=== PATIENT | male | born 1965 | race Caucasian/White ===

== ENCOUNTER → 2016-10-02 | Outpatient (CLI) | payer BC ==
[~2016-10-02] MED LIST: MULT-506 PO; OMEG10007 PO; WARF2TAB PO
--- NOTE | 2016-10-02 11:26 | DIAGNOSTIC IMAGING REPORT ---
RIGHT KNEE 3 VIEWS INCLUDING BILATERAL STANDING AP VIEWS CLINICAL HISTORY: Right knee pain COMPARISON: March 30, 2016 DISCUSSION: There are postsurgical changes of a total right knee arthroplasty and patellar resurfacing. No acute fractures or dislocations are visualized. There is equivocal small joint effusion. IMPRESSION: Postsurgical change. Equivocal small joint effusion. No fractures or destructive lesions identified. Electronically signed by: Alessandro Coulter M.D. 10/02/2016 11:25 AM Dictated Date/Time: 10/02/2016 11:23 AM
== END | disposition home or self-care (01) ==
LOC: C.RDSM 10:00
PROVIDERS: ATTEND Physical Medicine & Rehabilitation Sports Medicine
DX: Z96.651 Presence of right artificial knee joint (principal)

== ENCOUNTER → 2017-08-30 | Outpatient (CLI) | payer BC ==
--- NOTE | 2017-08-30 10:26 | DIAGNOSTIC IMAGING REPORT ---
R KNEE 3 VIEWS CLINICAL HISTORY: RIGHT TOTAL KNEE REPLACEMENT joint replacement COMPARISON: 10/02/2016 DISCUSSION: Total right knee arthroplasty good position. Good contact between prosthetic and underlying bone. There is no evidence for soft tissue swelling. IMPRESSION: Anatomic alignment status post total right knee arthroplasty. The above report was generated using voice recognition software. It may contain grammatical, syntax or spelling errors. Electronically signed by: Yang Mayes M.D. 08/30/2017 10:24 AM Dictated Date/Time: 08/30/2017 10:24 AM
== END | disposition home or self-care (01) ==
LOC: C.RDSM 11:44
PROVIDERS: ATTEND Physician Assistant
DX: Z47.1 Aftercare following joint replacement surgery (principal); Z96.651 Presence of right artificial knee joint